=== PATIENT | male | born 1940 | race Two or more races ===

== ENCOUNTER 2019-05-03 05:56 | Inpatient (IN) | payer MEDICARE, MEDICAID ==
[2019-05-03] VITALS (14 sets, daily range): BP systolic 124–177; BP diastolic 62–97
[~2019-05-03] VITALS: Ht 170.2 cm; Wt 87.7 kg
[~2019-05-03 05:56] MED LIST: MULTIVITAMINS1 EAC2 ORAL
[2019-05-03] MEDS ORDERED: oxyCONTIN 20mg tab ORAL ONE (06:00)
[2019-05-03] MEDS ORDERED: ceFAZolin 1gm IVPB IVPB ONE ×2 (06:00)
[2019-05-03] MEDS ORDERED: celeBREX 200mg Cap **SURGERY PATIENTS ONLY ORAL ONE (06:00)
[2019-05-03] MEDS ORDERED: Bacitracin 50000 Units Vial ONE (06:38)
--- NOTE | 2019-05-03 07:06 | Pre-Procedure Note/Attestation ---
Pre-Procedure Note/Attestation Complete Prior to Procedure Planned Procedure: right Procedure Narrative: right total knee arthroplasty Indications for Procedure Pre-Operative Diagnosis: right knee arthritis Attestation I attest that I discussed the nature of the procedure; its benefits; risks and complications; and alternatives (and the risks and benefits of such alternatives ), prior to the procedure, with the patient (or the patient's legal telemarketing representative). I attest that, if there was a reasonable possibility of needing a blood transfusion, the patient (or the patient's legal telemarketing representative) was given the [facility] standardized written summary, pursuant to the Zoltan Farzad Blood Safety Act ([place] Health and Safety Code # 1645, as amended). I attest that I re-evaluated the patient just prior to the surgery and that there has been no change in the patient's H&P, except as documented below: none Marvin Addison MD May 03, 2019 07:06
[2019-05-03] MEDS ORDERED: ASPIR 8181 MG ORAL (07:15)
[2019-05-03] MEDS ORDERED: VITAMIN D250000 UNI1 ORAL (07:16)
--- NOTE | 2019-05-03 07:25 | NUR ---
IV LR WAS STARTED BY MARIBELL CANTRELL RN. NO S/S OF INFILTRATION.
[2019-05-03] MEDS ORDERED: fentaNYL 100 mcg/2 mL IV PRN (07:30)
[2019-05-03] MEDS ORDERED: DiphenhydrAMINE 50mg/ml Inj IVP PRN (07:30)
[2019-05-03] MEDS ORDERED: Acetaminophen (Non formulary) 100 ML IV ONE (07:30)
[2019-05-03] MEDS ORDERED: Tranexamic Acid 1,000 MG in NS 55 ML IVPB ONE (07:30)
[2019-05-03] MEDS ORDERED: Midazolam 2mg/2ml Inj ONE (07:32)
[2019-05-03] MEDS ORDERED: Morphine Sulfate PF 10 ML ONE (07:32)
[2019-05-03] MEDS ORDERED: HYDROmorphone 1mg/ml Carpuject SUBQ PRN (08:00)
[2019-05-03] MEDS ORDERED: Milk of Magnesia 30ml Ud ORAL PRN (08:00)
[2019-05-03] MEDS ORDERED: NS Irrig 1000ml ONE (08:30)
[2019-05-03] MEDS ORDERED: Sterile Water Irrig 1000ml IRRIG ONE (08:30)
[2019-05-03] MEDS ORDERED: LR 1000ml ONE (08:30)
--- NOTE | 2019-05-03 09:37 | Diagnostic Imaging Report ---
Indication: Cough Technique: One view of the chest Comparison: 06/07/2012 Findings: The heart is enlarged. The lungs and pleural spaces are clear. There is no significant interim change Impression: Cardiomegaly. No acute process
[2019-05-03] MEDS ORDERED: Lidocaine 1% MPF 10mg/ml 5ml ONE (09:42)
[2019-05-03] MEDS ORDERED: Propofol 200mg/20ml IV ONE (09:42)
[2019-05-03] MEDS ORDERED: Ropivacaine 5mg/ml Vial 30ml INJ ONE (09:42)
--- NOTE | 2019-05-03 11:13 | Brief Operative Note ---
Immediate Post Operative Note Operative Note Chief Complaint: rt knee pain Pre-op Diagnosis: right knee arthritis Procedure: rt total knee arthroplasty Post-op Diagnosis: same as pre-op Findings: consistent w/pre-op dx studies Surgeon: md bell Artist Blacksmith: srinivasan ibarra Anesthesiologist: RADHA bello Anesthesia: general Specimen: yes Complications: none Condition: stable Fluids: ns Drains: none Implant(s) used?: Yes - Trixie Gill May 03, 2019 11:13
--- NOTE | 2019-05-03 11:55 | Anethesia Preoperative Eval ---
Anesthesia Pre-op PMH/ROS General Date of Evaluation: May 03, 2019 Time of Evaluation: 08:00 Anesthesiologist: byron ASA Score: ASA 2 Mallampati Score Class I : Soft palate, uvula, fauces, pillars visible Class II: Soft palate, uvula, fauces visible Class III: Soft palate, base of uvula visible Class IV: Only hard plate visible Mallampati Classification: Class III Surgeon: Cyn Diagnosis: OA Surgical Procedure: TKA Anesthesia History: none Family History: no anesthesia problems Allergies: Coded Allergies: No Known Allergies (Unverified , 06/15/12) Medications: see eMAR Patient NPO?: Yes NPO Date: May 02, 2019 NPO Time: 1999 Past Medical History Cardiovascular: Reports: HTN Pulmonary: Denies: asthma, COPD, HALEY, other Gastrointestinal/Genitourinary: Reports: GERD; Denies: CRI, ESRD, other Neurologic/Psychiatric: Denies: dementia, CVA, depression/anxiety, TIA, other Endocrine: Denies: DM, hypothyroidism, steroids, other HEENT: Denies: cataract (L), cataract (R), glaucoma, UPPER MATTAPONI (L), UPPER M[place]I (R), other Hematology/Immune: Denies: anemia, DVT, bleeding disorder, other PSxH Narrative: Left TKA Anesthesia Pre-op Phys. Exam Physician Exam Last Vital Signs Date Time Temp Pulse Resp B/P (MAP) Pulse Ox O2 Delivery O2 Flow Rate FiO2 05/03/19 11:45 60 23 159/86 100 Simple Mask 6 05/03/19 11:25 98.2 Constitutional: NAD Neurologic: CN 2-12 intact Cardiovascular: RRR Respiratory: CTA Gastrointestinal: S/NT/ND Airway Exam Mallampati Classification 2 Mallampati Score: Class II MO: full Neck: thick TMD: 2fb ROM: full Dentures: no upper, no lower Anesthesia Pre-op A/P Labs Chemistry Test 05/03/19 07:20 Potassium Level 5.0 MMOL/L (3.5-5.1) Studies Pre-op Studies: EKG - SR Risk Assessment & Plan Plan: SAB/Peripheral Nerve Block Status Change Before Surgery: No Pre-Antibiotics Drug: ancef Given Within 1 Hr of Incision: Yes Time Given: 08:35 Brittney Ambrosio CRNA May 03, 2019 11:55
--- NOTE | 2019-05-03 11:58 | Immediate Post-Op Evaluation ---
Immediate Post-Op Evalulation Immediate Post-Op Evalulation Procedure: Right TKA Date of Evaluation: May 03, 2019 Time of Evaluation: 11:30 IV Fluids: 1500 Blood Products: 0 Estimated Blood Loss: 200 Urinary Output: 400 Blood Pressure Systolic: 136 Blood Pressure Diastolic: 74 Pulse Rate: 80 Respiratory Rate: 14 O2 Sat by Pulse Oximetry: 100 Temperature (Fahrenheit): 98.2 Nausea: No Vomiting: No Complications none Patient Status: awake, reacts, patent Hydration Status: adequate Drug: ancef Given Within 1 Hr of Incision: Yes Time Given: 08:35 Brittney Ambrosio CRNA May 03, 2019 11:58
[2019-05-03] MEDS ORDERED: Ketorolac 30mg Inj IV PRN (12:00)
--- NOTE | 2019-05-03 13:56 | Diagnostic Imaging Report ---
Indications: Postoperative Technique: Two views of the right knee Comparison: None Findings: Two postoperative views of the right knee demonstrate total knee arthroplasty, good anatomic alignment of the prosthesis. . There is postsurgical soft tissue air. Overlying skin fox. Impression: Postoperative right knee, no unusual features.
--- NOTE | 2019-05-03 14:00 | NUR ---
NURSE NOTES: Received s/p knee surgery, brace on , bandage clean and intact. Kyrgyz speaker has sensation to his right foot, kerwin hose, on. Per report of PT pt will be placed on CPM machine , pain medication will be given prior. Breathing room air. Ice chips given, informed that his diet will advance as tolerated. Provided with ice chips , and small amount of juice denies nausea. Current plan will be followed
--- NOTE | 2019-05-03 14:35 | NUR ---
P.T Note: P.T evaluation completed and tx initiated POD #0 per TKR protocol with granddaughter present. Pt is alert , O x 4 and cooperative. Pt reports c/o R knee pain 8/10 with movement initiation however agreeable to participate in therapy. Pt currently require MOD A X 1 , verbal cues and extended time to initiate and complete supine to/from sitting and sitting to/from standing transitions. Pt was only able to take 3-4 tiny steps using the FWW and not able to tolerate farther distance due to increased R knee pain especially upon WB. RN administered pain medication during tx session. Vitals : 172/102 mmhg HR: 87 bpm , 95%-97% pre therapy session and 168/100 mmhg, HR: 94 BPM, O2 sat: 9%-95% post P.T session. CPM was set up to 0-60 deg and currently tolerating well. CPM endorsed to RN at the end of P.T shift. Pt will benefit from skilled P.T services to improve ROM, strength and activity tolerance to increase mobility independence and safety. Recommend FWW, bedside commode and SNF or ARU for short term rehab VS home with P.T at [place]. thank you for this referral.
[2019-05-03] MEDS: D5 1/2NS w/KCl 20mEq 1,000 ML IV SCH (14:36)
[2019-05-03] MEDS: Docusate 100mg cap ORAL SCH ×2 (14:37→19:33)
--- NOTE | 2019-05-03 16:15 | Operative Note - Dictated ---
DATE OF OPERATION: 05/03/2019 PREOPERATIVE DIAGNOSIS: Right knee end-stage arthritis. POSTOPERATIVE DIAGNOSIS: Right knee end-stage arthritis. PROCEDURE: Right total knee arthroplasty using [employer] Triathlon System, size 3 femur, size 3 tibia, size 29 mm all-poly patella and a 16 mm ultra cross-linked X3 polyethylene. SURGEON: Marvin Addison M.D. EMERGENCY DEPARTMENT PHYSICIAN: Trixie Fisher PA-C. ANESTHESIOLOGIST: Brittney Ambrosio CRNA. ANESTHESIA: Spinal anesthesia combined with adductor block. ESTIMATED BLOOD LOSS: Less than 50 mL. TOURNIQUET TIME: 70 minutes. COMPLICATIONS: None. BRIEF HISTORY: The patient is a pleasant 79-year-old gentleman who has had ongoing right knee pain. He was treated nonoperatively and he failed. After full discussion of risks and benefits of the surgery and complications associated with it including infection, bleeding, neurovascular complication, possibility of stiffness, possibility of instability, possibility of continued pain, possibility of DVT, PE, and wound infection requiring resection arthroplasty and other complications that may arise down the line, he opted for surgical treatment as described above. OPERATIVE PROCEDURE: The patient was brought to the operating room table and was placed supine. All pressure points well padded. Spinal anesthesia was induced and adductor block was performed. The right knee was prepped and draped in usual sterile fashion and the right knee was exsanguinated. Tourniquet was inflated to 275 mmHg. A standard anterior approach to the knee was undertaken. The incision was taken through the subcutaneous tissue. Medial parapatellar arthrotomy was performed and the deep fibers of the MCL were released. The fat pad was resected. The knee was bent and the intramedullary and ACL and PCL were removed. Intramedullary access into the femur was obtained and intramedullary guide was placed in and a distal femoral cut was performed in 5 degrees of valgus. At this point, measurements were made and size 3 appeared to be the right size. Size 3 cutting block was placed in 3 degrees of external rotation and anterior, posterior, and chamfer cuts were performed. The trial prostheses was applied and lateralized slightly and the PEG holes were drilled. At this point, care was given to the tibia. Extramedullary tibial guide was applied. The anterior crest of the tibia was used as a guide to recreate anatomical axis. The medial side was worn significantly and it was felt that 2 mm of additional cut off the medial side would be the correct cut. This was performed using the guide in neutral anatomical alignment with recreating the patient's posterior slope. Once this was completed, extension gap was checked and appeared to be perfect at 16 mm. Therefore at this point, the sizing of the tibia was performed and size 3 appeared to be the right size. This was placed in about 3 degrees of external rotation and the central hole was drilled and punched. Once this was completed, the femoral component and tibial components were applied and the sequential poly was placed at the 11 mm, 13 mm, 16 mm. 16 mm gave excellent stability at 0, 30 degrees, 45 degrees, 90 degrees of flexion and gave full flexion and extension. At this point, care was given to the patella. The patella was everted. It measured 24 mm. A standard freehand cut of the patella was performed and 12 mm was remaining. Measurements were made and 29 mm patella appeared to be the right size. The PEG holes were drilled. The patellar trial was applied and femoral and tibial components were applied and 16 mm poly was applied and the patellofemoral tracking was checked. There was excellent patellofemoral tracking and excellent range of motion and stability as described. At this point, all trial components were removed. The cement was mixed. The central femoral hole was plugged using the bone plug. The cement was mixed. After thoroughly irrigating the knee and drying the knee, the tibial component, femoral component, and patella components were all cemented and all excess cement was removed. Compression was applied until cement had hardened and subsequently a 16 mm poly was then locked in. Range of motion, stability, and patellofemoral tracking was checked and again it was excellent as described previously. All wounds were thoroughly irrigated using copious amount of fluid. The tourniquet was deflated and all small bleeders were coagulated. The extensor mechanism was closed using #1 Vicryl suture. Subcutaneous tissue was closed using 2-0 Vicryl suture. Skin was closed using 3-0 Monocryl suture. Dermabond was applied and sterile dressing was applied. The patient was taken to recovery room in stable condition. All lap counts and instrument counts were correct. Marvin Heber Addison DR: KUMAR JOB#: [id number] CC:
[2019-05-03] MEDS: HYDROcodone/Acetamin 7.5/325 tab ORAL PRN (17:22)
[2019-05-03] MEDS: ceFAZolin sod 1 GM in D5W 55 ML IV SCH (17:22)
--- NOTE | 2019-05-03 19:20 | NUR ---
NURSE NOTES: Received pt resting in bed. AAO x 4, on NC 2L. CPM machine applied and dressing on the R leg intact/dry. Pt has sensation on both leg. Pt hasn't had urine out since knee surgery. IV intact and running fluid. No resp. distress noted. Bed locked, lowest position, side rails up, call light within reach. Will continue to monitor.
--- NOTE | 2019-05-03 19:48 | NUR ---
NURSE NOTES: Pt currently sleeping. Endorsed to oncoming nurse to remove cpm machine, and monitor pt for urine output. Call light is in reach. family member is at bedside. Refused dinner, stated he will eat when he wakes up. Has sensation to both feet, required encouragement to take pain medication " Pain is a part of healing" Error made for [place] stated pain was very minimal entered as 6 in error. 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 Mexican speaker cooperative kind male. Call light in reach. Tolerated fluids
--- NOTE | 2019-05-03 21:30 | NUR ---
NURSE NOTES: CPM removed and applied towel roll under the R heel.
[2019-05-03] MEDS: oxyCONTIN 10mg tab ORAL SCH (21:46)
--- NOTE | 2019-05-03 22:20 | NUR ---
NURSE NOTES: Performed bladder scan and result is 462cc. Called Dr. Calvin and ordered Flomax 0.4mg, po, daily and Gilbert. Order noted and carried out.
[2019-05-04] VITALS (7 sets, daily range): BP systolic 133–188; BP diastolic 53–102
[2019-05-04] MEDS: ceFAZolin sod 1 GM in D5W 55 ML IV SCH (03:32)
[2019-05-04] MEDS: D5 1/2NS w/KCl 20mEq 1,000 ML IV SCH ×2 (03:32→16:40)
[2019-05-04 07:06] LABS: BASOPHILS % (AUTO) 0.6 % (0.0-2.0); EOSINOPHILS % (AUTO) 1.5 % (0.0-3.0); HEMATOCRIT 43.2 % (42.0-52.0); HEMOGLOBIN 14.1 G/DL (14.2-18.0); MEAN CORPUSCULAR VOLUME 92 FL (80-99); MONOCYTES % (AUTO) 9.6 % (1.0-10.0); NEUTROPHILS % (AUTO) 76.4 % (45.0-75.0); PLATELET COUNT 153 K/UL (150-450); RED CELL DISTRIBUTION WIDTH 12.4 % (11.6-14.8); WHITE BLOOD COUNT 7.7 K/UL (4.8-10.8)
--- NOTE | 2019-05-04 07:17 | Orthopedic Progress Note ---
Orthopedic - Progress Note Subjective Symptoms: c/o post-op knee pain Additional Comments slow with PT Objective Last 24 Hour Vital Signs Date Time Temp Pulse Resp B/P (MAP) Pulse Ox O2 Delivery O2 Flow Rate FiO2 05/04/19 04:00 97.9 83 20 147/74 (98) 97 05/04/19 00:00 96.8 83 18 149/76 (100) 97 05/03/19 21:00 Nasal Cannula 2.0 05/03/19 20:00 97.8 80 18 148/86 (106) 98 05/03/19 16:18 97.6 80 20 132/78 (96) 96 05/03/19 13:00 98.2 69 19 159/93 100 Nasal Cannula 3 05/03/19 12:45 67 18 158/97 98 Nasal Cannula 3 05/03/19 12:36 98.2 05/03/19 12:36 98.2 05/03/19 12:35 67 16 165/90 99 Nasal Cannula 3 05/03/19 12:25 69 17 169/93 99 Nasal Cannula 3 05/03/19 12:15 66 18 175/95 99 Nasal Cannula 3 05/03/19 12:05 61 17 177/89 100 Nasal Cannula 3 05/03/19 11:58 80 14 100 05/03/19 11:55 63 16 167/91 100 Nasal Cannula 3 05/03/19 11:45 60 23 159/86 100 Simple Mask 6 05/03/19 11:35 60 23 157/79 100 Simple Mask 6 05/03/19 11:30 61 23 149/62 100 Simple Mask 6 05/03/19 11:25 98.2 80 14 136/74 100 Simple Mask 6 05/03/19 07:44 97.8 69 20 124/88 (100) 97 05/03/19 07:37 Room Air Intake and Output 05/03/19 05/04/19 19:00 07:00 Intake Total 1900 ml Output Total 600 ml 1100 ml Balance 1300 ml -1100 ml Intake IV Total 1900 ml Output Urine Total 400 ml 1100 ml Estimated Blood Loss 200 ml Laboratory Tests Test 05/03/19 07:20 05/04/19 05:48 Potassium Level 5.0 MMOL/L (3.5-5.1) White Blood Count 7.7 K/UL (4.8-10.8) Red Blood Count 4.70 M/UL (4.70-6.10) Hemoglobin 14.1 G/DL (14.2-18.0) L Hematocrit 43.2 % (42.0-52.0) Mean Corpuscular Volume 92 FL (80-99) Mean Corpuscular Hemoglobin 30.0 PG (27.0-31.0) Mean Corpuscular Hemoglobin Concent 32.6 G/DL (32.0-36.0) Red Cell Distribution Width 12.4 % (11.6-14.8) Platelet Count 153 K/UL (150-450) Mean Platelet Volume 7.8 FL (6.5-10.1) Neutrophils (%) (Auto) 76.4 % (45.0-75.0) H Lymphocytes (%) (Auto) 12.0 % (20.0-45.0) L Monocytes (%) (Auto) 9.6 % (1.0-10.0) Eosinophils (%) (Auto) 1.5 % (0.0-3.0) Basophils (%) (Auto) 0.6 % (0.0-2.0) Wound: clean, dry Drains: none Neuro Status: normal Vascular Status: normal Plan Plan: PT, pain management, discharge plan Additional Comments Plan on going to rehab. Marvin Addison MD May 04, 2019 07:17
--- NOTE | 2019-05-04 07:45 | NUR ---
NURSE NOTES: Received report from Blanca JOHNSON. Patient is awake and oriented, no acute distress noted, reporting pain rated 5/10 in right knee. Surgical site dressing clean, dry, intact, SCD on left leg, NIKKI HOSE on right leg. IVF running per order. Patient's and granddaughter at bedside updated on plan of care. Fall precautions maintained. Gilbert catheter to gravity drainage. Side rails upx3, bed low and locked, call light within reach.
--- NOTE | 2019-05-04 08:09 | NUR ---
HAND-OFF: Report given to ELIZABETH Tanner.
--- NOTE | 2019-05-04 08:39 | 48 Hour Post Anesthesia Eval ---
Post Anesthesia Evaluation Procedure: Right TKA Date of Evaluation: May 04, 2019 Time of Evaluation: 06:17 Blood Pressure Systolic: 147 0: 74 Pulse Rate: 83 Respiratory Rate: 20 Temperature (Fahrenheit): 97.9 O2 Sat by Pulse Oximetry: 97 Airway: patent Nausea: No Vomiting: No Pain Intensity: 3 Hydration Status: adequate Cardiopulmonary Status: Stable Mental Status/LOC: patient returned to baseline Follow-up Care/Observations: 0 Post-Anesthesia Complications: 0 Follow-up care needed: N/A Jose Sparks MD May 04, 2019 08:39
[2019-05-04] MEDS: Docusate 100mg cap ORAL SCH ×3 (09:24→17:45)
[2019-05-04] MEDS: Tamsulosin 0.4mg cap ORAL SCH (09:25)
[2019-05-04] MEDS: celeBREX 200mg Cap **SURGERY PATIENTS ONLY ORAL SCH (09:25)
[2019-05-04] MEDS: oxyCONTIN 10mg tab ORAL SCH ×2 (09:26→20:36)
[2019-05-04] MEDS: HYDROcodone/Acetamin 7.5/325 tab ORAL PRN ×2 (10:43→23:23)
--- NOTE | 2019-05-04 12:27 | NUR ---
NURSE NOTES: Called office of Dr. Calvin to report patient's blood pressure of 181/99, spoke with escrow secretary Julieth. Per MD Julieth will be paged. Awaiting callback. Patient denies headache or blurry vision, patient is just reporting pain. No pain medication due at this time.
--- NOTE | 2019-05-04 12:34 | NUR ---
NURSE NOTES: Received call back from Dr. Calvin. Order received for PRN pain medication and PRN blood pressure medication. Orders read back and entered.
[2019-05-04] MEDS ORDERED: traMADol 50mg tab ORAL PRN (12:45)
--- NOTE | 2019-05-04 14:16 | NUR ---
CASE MANAGEMENT: INITIAL REVIEW 79YR OLD MALE HERE FOR ELECTIVE SURGERY SI: RIGHT KNEE ARTHRITIS 97.8 69 20 124/88 97% ON RA IS: RIGHT KNEE ARTHROPLASTY 05/03/19 : IN SURGERY NOW DCP: [facility] WHEN MEDICALLY CLEARED CASE MANAGEMENT: REVIEW 05/04/19 SI: POD#1 RIGHT KNEE ARTHROPLASTY 98.0 87 18 150/97 94% ON RA IS: IV DEXTROSE @75ML/HR IV CEFAZOLIN X2 BAGS FEOSOL PO TID CATAPRES PO Q8/PRN PROTONIX PO QD CELEBREX PO QD 3E MED SURG UNIT DCP: TO REHAB ONCE MEDICALLY CLEAR PLAN: PT EVAL AND TREAT
--- NOTE | 2019-05-04 19:45 | NUR ---
HAND-OFF: Report given to Sofi JOHNSON.
[2019-05-05] VITALS: BP 156/82
--- NOTE | 2019-05-05 03:32 | History and Physical Report ---
DATE OF ADMISSION: 05/03/2019 INTERNAL MEDICINE CONSULTATION HISTORY OF PRESENT ILLNESS: The patient is a very pleasant 79-year-old gentleman with a history of arthritis, who underwent right knee replacement on yesterday with Dr. Addison. Postoperatively, the patient did fine, but had difficulty urinating and had retention and a Gilbert was placed. He denies any headaches. No sore throat. No chest pain. No shortness of breath. No abdominal pain. He does have knee pain and is getting pain medications for it. Due to the pain, his BP has been elevated as well. PAST MEDICAL HISTORY: The patient has no history of diabetes or hyperlipidemia. He does have a history of increased blood pressure in the past. He has had a history of cataract surgery. He has had a history of left knee surgery in 2011 and left shoulder surgery with tendons and ligaments. He has a history of osteoarthritis gets worse with weather changes. 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 He has received radiation therapy. FAMILY HISTORY: Brother had cirrhosis from alcoholism. Mother had history of high blood pressure. Father had depression. ALLERGIES: None known. MEDICATIONS: Please see his reconciled medication list. REVIEW OF SYSTEMS: Twelve point review of systems reviewed, negative except for above. PHYSICAL EXAMINATION: GENERAL: He is well developed and well nourished, currently in no apparent distress. VITAL SIGNS: Revealed a blood pressure initially 181/99, respirations 18, pulse 89, and temperature 98.2. HEENT: Head is normocephalic and atraumatic. Pupils are equal and reactive to light. Extraocular muscles are intact. Eyes are anicteric. NECK: Supple. No JVP. No bruits. LUNGS: Clear. HEART: Regular rate and rhythm. ABDOMEN: Soft. Positive bowel sounds. EXTREMITIES: No clubbing, cyanosis, or edema. His right knee is wrapped, neurovascular intact. PSYCHIATRIC: Normal mood and affect. LABORATORY DATA: Revealed white count 7.7, hemoglobin 14.1, hematocrit 43.2, and platelet count 153,000. His chest x-ray reveals cardiomegaly, no acute disease. His knee film reveals postoperative right knee. No unusual features. ASSESSMENT AND PLAN: The patient is a pleasant 79-year-old gentleman who underwent a knee replacement secondary to osteoarthritis. He does have a history of hypertension from before. Due to the increased pain, his BP has been up. I placed him on clonidine 0.1 mg three times a day and p.r.n. We will place him on Norvasc 5 mg daily and monitor. We will check labs in the a.m. The patient should be on DVT and ulcer prophylaxis. Evan Calvin M.D. DR: JUDY JOB#: [id number] CC:
[2019-05-05] MEDS: D5 1/2NS w/KCl 20mEq 1,000 ML IV SCH ×3 (03:46→21:35)
[2019-05-05] MEDS: HYDROcodone/Acetamin 7.5/325 tab ORAL PRN ×2 (03:46→17:50)
[2019-05-05 04:00] VITALS: BP 128/83
--- NOTE | 2019-05-05 06:24 | NUR ---
NURSE NOTES: POD # 2 dressing change done to left knee per MD order. Applied 4x4 gauze and tegaderm, clean, dry and intact.
[2019-05-05 06:34] LABS: BASOPHILS % (AUTO) 0.4 % (0.0-2.0); EOSINOPHILS % (AUTO) 2.4 % (0.0-3.0); HEMATOCRIT 38.6 % (42.0-52.0); HEMOGLOBIN 12.6 G/DL (14.2-18.0); LYMPHOCYTES % (AUTO) 9.9 % (20.0-45.0); MEAN CORPUSCULAR VOLUME 92 FL (80-99); NEUTROPHILS % (AUTO) 77.3 % (45.0-75.0); PLATELET COUNT 129 K/UL (150-450); RED CELL DISTRIBUTION WIDTH 12.1 % (11.6-14.8); WHITE BLOOD COUNT 9.4 K/UL (4.8-10.8)
[2019-05-05 06:59] LABS: ALANINE AMINOTRANSFERASE 18 U/L (12-78); ALBUMIN 2.6 G/DL (3.4-5.0); ALBUMIN/GLOBULIN RATIO 0.7 (1.0-2.7); ALKALINE PHOSPHATASE 114 U/L (46-116); ANION GAP 8 mmol/L (5-15); ASPARTATE AMINO TRANSFERASE 23 U/L (15-37); BILIRUBIN,TOTAL 0.9 MG/DL (0.2-1.0); BLOOD UREA NITROGEN 18 mg/dL (7-18); CARBON DIOXIDE 23 MMOL/L (21-32); CHLORIDE 107 MMOL/L (98-107); CREATININE 1.4 MG/DL (0.55-1.30); SODIUM 138 MMOL/L (136-145)
--- NOTE | 2019-05-05 07:25 | NUR ---
HAND-OFF: Report given to Rhona.
--- NOTE | 2019-05-05 07:45 | NUR ---
NURSE NOTES: Received report from Sofi JOHNSON. Patient is awake and oriented, no acute distress noted, reporting pain rated 7/10 in right knee, will medicate per order, patient has scheduled AM pain medication. Right knee dressing clean, dry, intact. IVF running per order through left wrist IV, IV intact, patent. Gilbert catheter to gravity drainage. Patient updated on plan of care for the day. Fall precautions maintained, side rails upx3, bed low and locked, call light within reach.
[2019-05-05 08:00] VITALS: BP 144/89
--- NOTE | 2019-05-05 08:01 | Orthopedic Progress Note ---
Orthopedic - Progress Note Subjective Symptoms: improved - doing well with PT. pain controlled. Had some urinary retention and ordaz placed Objective Laboratory Tests Test 05/05/19 05:30 White Blood Count 9.4 K/UL (4.8-10.8) Red Blood Count 4.20 M/UL (4.70-6.10) L Hemoglobin 12.6 G/DL (14.2-18.0) L Hematocrit 38.6 % (42.0-52.0) L Mean Corpuscular Volume 92 FL (80-99) Mean Corpuscular Hemoglobin 30.1 PG (27.0-31.0) Mean Corpuscular Hemoglobin Concent 32.7 G/DL (32.0-36.0) Red Cell Distribution Width 12.1 % (11.6-14.8) Platelet Count 129 K/UL (150-450) L Mean Platelet Volume 7.4 FL (6.5-10.1) Neutrophils (%) (Auto) 77.3 % (45.0-75.0) H Lymphocytes (%) (Auto) 9.9 % (20.0-45.0) L Monocytes (%) (Auto) 10.0 % (1.0-10.0) Eosinophils (%) (Auto) 2.4 % (0.0-3.0) Basophils (%) (Auto) 0.4 % (0.0-2.0) Sodium Level 138 MMOL/L (136-145) Potassium Level 4.0 MMOL/L (3.5-5.1) Chloride Level 107 MMOL/L (98-107) Carbon Dioxide Level 23 MMOL/L (21-32) Anion Gap 8 mmol/L (5-15) Blood Urea Nitrogen 18 mg/dL (7-18) Creatinine 1.4 MG/DL (0.55-1.30) H Estimat Glomerular Filtration Rate mL/min (>60) Glucose Level 116 MG/DL (74-106) H Calcium Level 8.0 MG/DL (8.5-10.1) L Total Bilirubin 0.9 MG/DL (0.2-1.0) Aspartate Amino Transf (AST/SGOT) 23 U/L (15-37) Alanine Aminotransferase (ALT/SGPT) 18 U/L (12-78) Alkaline Phosphatase 114 U/L (46-116) Total Protein 6.3 G/DL (6.4-8.2) L Albumin 2.6 G/DL (3.4-5.0) L Globulin 3.7 g/dL Albumin/Globulin Ratio 0.7 (1.0-2.7) L Last 24 Hour Vital Signs Date Time Temp Pulse Resp B/P (MAP) Pulse Ox O2 Delivery O2 Flow Rate FiO2 05/05/19 04:00 98.2 95 20 128/83 (98) 95 05/05/19 00:00 98.2 98 20 156/82 (106) 96 05/04/19 22:07 92 156/81 05/04/19 21:00 Room Air 05/04/19 20:00 97.9 96 18 141/53 (82) 97 05/04/19 16:00 97.9 92 16 133/89 (104) 96 05/04/19 13:13 188/102 05/04/19 13:06 97 188/102 (130) 05/04/19 12:00 98.2 89 18 181/99 (126) 96 05/04/19 09:00 Room Air 05/04/19 08:39 83 20 97 Intake and Output 05/04/19 05/05/19 19:00 07:00 Intake Total 1125 ml Output Total 900 ml 750 ml Balance 225 ml -750 ml Intake Oral 300 ml IV Total 825 ml Output Urine Total 900 ml 750 ml Laboratory Tests Test 05/05/19 05:30 White Blood Count 9.4 K/UL (4.8-10.8) Red Blood Count 4.20 M/UL (4.70-6.10) L Hemoglobin 12.6 G/DL (14.2-18.0) L Hematocrit 38.6 % (42.0-52.0) L Mean Corpuscular Volume 92 FL (80-99) Mean Corpuscular Hemoglobin 30.1 PG (27.0-31.0) Mean Corpuscular Hemoglobin Concent 32.7 G/DL (32.0-36.0) Red Cell Distribution Width 12.1 % (11.6-14.8) Platelet Count 129 K/UL (150-450) L Mean Platelet Volume 7.4 FL (6.5-10.1) Neutrophils (%) (Auto) 77.3 % (45.0-75.0) H Lymphocytes (%) (Auto) 9.9 % (20.0-45.0) L Monocytes (%) (Auto) 10.0 % (1.0-10.0) Eosinophils (%) (Auto) 2.4 % (0.0-3.0) Basophils (%) (Auto) 0.4 % (0.0-2.0) Sodium Level 138 MMOL/L (136-145) Potassium Level 4.0 MMOL/L (3.5-5.1) Chloride Level 107 MMOL/L (98-107) Carbon Dioxide Level 23 MMOL/L (21-32) Anion Gap 8 mmol/L (5-15) Blood Urea Nitrogen 18 mg/dL (7-18) Creatinine 1.4 MG/DL (0.55-1.30) H Estimat Glomerular Filtration Rate mL/min (>60) Glucose Level 116 MG/DL (74-106) H Calcium Level 8.0 MG/DL (8.5-10.1) L Total Bilirubin 0.9 MG/DL (0.2-1.0) Aspartate Amino Transf (AST/SGOT) 23 U/L (15-37) Alanine Aminotransferase (ALT/SGPT) 18 U/L (12-78) Alkaline Phosphatase 114 U/L (46-116) Total Protein 6.3 G/DL (6.4-8.2) L Albumin 2.6 G/DL (3.4-5.0) L Globulin 3.7 g/dL Albumin/Globulin Ratio 0.7 (1.0-2.7) L Wound: clean, dry, intact Drains: none Neuro Status: normal Vascular Status: normal Assessment Post-op Diagnosis POD 2 Procedure Performed rt total knee arthroplasty Plan Plan: discharge plan - to [facility]. , other - d/c ordaz and ensure voiding prior to d/c to rehab Trixie Fisher May 05, 2019 08:01
--- NOTE | 2019-05-05 08:03 | Discharge Summary ---
Discharge Summary Hospital Course Date of Admission May 03, 2019 at 05:56 Date of Discharge 05/05/19 Admitting Diagnosis rt knee arthritis Reason for Hospitalization: s/p Rt TKA HPI Ry Cho is a 79 year old male who was admitted on May 03, 2019 at 05:56 for Right Total Knee Artroplasty Consultations MD Nikunj Procedures rt TKA Hospital Course benign. had some urinary retention POD 1 and ordaz placed. Discharge Condition Upon Discharge: improving, stable Discharge Disposition Patient was discharged to [facility] [place] Trixie Fisher May 05, 2019 08:03
[2019-05-05] MEDS: celeBREX 200mg Cap **SURGERY PATIENTS ONLY ORAL SCH (08:38)
[2019-05-05] MEDS: Docusate 100mg cap ORAL SCH ×3 (08:38→17:50)
[2019-05-05] MEDS: Tamsulosin 0.4mg cap ORAL SCH (08:38)
[2019-05-05] MEDS: oxyCONTIN 10mg tab ORAL SCH ×2 (08:39→20:43)
--- NOTE | 2019-05-05 08:47 | NUR ---
NURSE NOTES: Gilbert catheter removed per order. Patient tolerated well. Patient provided with urinal, educated to inform RN when he voids.
[2019-05-05] MEDS ORDERED: MOM30 ML ORAL (08:59)
[2019-05-05] MEDS ORDERED: PANTOPRAZOLE SO40 MG ORAL (08:59)
[2019-05-05] MEDS ORDERED: COLACE100 MG ORAL (08:59)
[2019-05-05] MEDS ORDERED: FEOSOL325 MG ORAL (08:59)
[2019-05-05] MEDS ORDERED: ASPIRIN325 MG ORAL (08:59)
[2019-05-05] MEDS ORDERED: NORVASC5 MG ORAL (08:59)
[2019-05-05] MEDS ORDERED: CLONIDINE HCL0.1 MG ORAL (08:59)
[2019-05-05] MEDS ORDERED: FLOMAX0.4 MG ORAL (08:59)
--- NOTE | 2019-05-05 09:55 | NUR ---
*-* CASE MANAGEMENT NOTES *-* EMAIL RECEIVED FROM GRAYSON JOHNSON WITH FORM TO BE UTILIZED FOR DISCHARGE PLANNING NEEDS. Addendum: 05/05/19 at 0915 by CHRISTIAN GOODE CM FORM GIVEN TO FASHION COORDINATOR
--- NOTE | 2019-05-05 10:19 | NUR ---
DISCHARGE PLANNING: BARRIERS POSSIBLE BED IN AM AT [facility] T: [phone] WILL F/U IN AM
--- NOTE | 2019-05-05 11:35 | NUR ---
DISCHARGE PLANNING: [facility] T: [phone] WAITING FOR RESPONSE Addendum: 05/05/19 at 1355 by ZAIRA BELL LVN POSSIBLE BED IN AM WILL F/U IN AM
[2019-05-05 12:00] VITALS: BP 150/86
--- NOTE | 2019-05-05 14:01 | NUR ---
NURSE NOTES: Patient voided 325mL of clear, yellow urine without difficulty.
[2019-05-05 16:00] VITALS: BP 149/86
--- NOTE | 2019-05-05 19:31 | NUR ---
HAND-OFF: Report given to Sofi JOHNSON.
[2019-05-05 20:00] VITALS: BP 146/81
--- NOTE | 2019-05-05 20:56 | General Progress Note ---
Assessment/Plan Assessment/Plan: sp knee replacement htn osteoarthritis pain control PT ambulate ruth regimen stool softners on novasc dvt and ucler prohylaxis dc plans to cri Subjective Allergies: Coded Allergies: No Known Allergies (Unverified , 06/15/12) Subjective pain controlled no chest pain or sob no bm Objective Last 24 Hour Vital Signs Date Time Temp Pulse Resp B/P (MAP) Pulse Ox O2 Delivery O2 Flow Rate FiO2 05/05/19 16:00 98.0 106 16 149/86 (107) 96 05/05/19 12:00 98.1 104 16 150/86 (107) 94 05/05/19 09:00 Room Air 05/05/19 08:38 95 144/89 05/05/19 08:00 98.7 95 16 144/89 (107) 94 05/05/19 04:00 98.2 95 20 128/83 (98) 95 05/05/19 00:00 98.2 98 20 156/82 (106) 96 05/04/19 22:07 92 156/81 05/04/19 21:00 Room Air Intake and Output 05/04/19 05/05/19 18:59 06:59 Intake Total 1200 ml Output Total 900 ml 750 ml Balance 300 ml -750 ml Intake Oral 300 ml IV Total 900 ml Output Urine Total 900 ml 750 ml Laboratory Tests 05/05/19 05:30: White Blood Count 9.4, Red Blood Count 4.20L, Hemoglobin 12.6L, Hematocrit 38.6L , Mean Corpuscular Volume 92, Mean Corpuscular Hemoglobin 30.1, Mean Corpuscular Hemoglobin Concent 32.7, Red Cell Distribution Width 12.1, Platelet Count 129L, Mean Platelet Volume 7.4, Neutrophils (%) (Auto) 77.3H, Lymphocytes (%) (Auto) 9.9L, Monocytes (%) (Auto) 10.0, Eosinophils (%) (Auto) 2.4, Basophils (%) (Auto) 0.4, Sodium Level 138, Potassium Level 4.0, Chloride Level 107, Carbon Dioxide Level 23, Anion Gap 8, Blood Urea Nitrogen 18, Creatinine 1.4H, Estimat Glomerular Filtration Rate , Glucose Level 116H, Calcium Level 8.0L, Total Bilirubin 0.9, Aspartate Amino Transf (AST/SGOT) 23, Alanine Aminotransferase (ALT/SGPT) 18, Alkaline Phosphatase 114, Total Protein 6.3L, Albumin 2.6L, Globulin 3.7, Albumin/Globulin Ratio 0.7L Height (Feet): 5 Height (Inches): 7.00 Weight (Pounds): 193 General Appearance: WD/WN, no apparent distress Neck: supple Cardiovascular: normal rate Respiratory/Chest: lungs clear Abdomen: soft Objective le wrapped neurvascular intact Evan Calvin MD May 05, 2019 20:56
[2019-05-06 00:23] VITALS: BP 136/86
[2019-05-06 04:30] VITALS: BP 136/83
[2019-05-06] MEDS: HYDROcodone/Acetamin 7.5/325 tab ORAL PRN (04:58)
--- NOTE | 2019-05-06 05:33 | NUR ---
NURSE NOTE: 05/05/191999 Pt A/Ox4 with stable VS. Orders reviewed and physical assessment completed. Right leg dressing is clean, dry, and intact with kerwin hose on. The right foot is resting on a rolled towel, pt refused to have SCD on left leg. Will continue to monitor
[2019-05-06 06:30] LABS: BASOPHILS % (AUTO) 0.3 % (0.0-2.0); EOSINOPHILS % (AUTO) 2.1 % (0.0-3.0); HEMOGLOBIN 12.7 G/DL (14.2-18.0); LYMPHOCYTES % (AUTO) 9.5 % (20.0-45.0); MEAN CORPUSCULAR VOLUME 91 FL (80-99); MONOCYTES % (AUTO) 7.5 % (1.0-10.0); NEUTROPHILS % (AUTO) 80.6 % (45.0-75.0); PLATELET COUNT 141 K/UL (150-450); RED BLOOD COUNT 4.15 M/UL (4.70-6.10); RED CELL DISTRIBUTION WIDTH 12.1 % (11.6-14.8)
--- NOTE | 2019-05-06 07:07 | NUR ---
HAND-OFF: Report given to Bonnie Loo.
--- NOTE | 2019-05-06 07:51 | NUR ---
NURSE NOTES: Patient awake and alert and oriented.Respirations unlabored.IV fluids infusing as ordered.right knee dressing intact.Pedal pulse strong.No complaints at this time.Patient eating breakfast.Bed alarm is on,call light within reach.
--- NOTE | 2019-05-06 08:24 | NUR ---
DISCHARGE PLANNING: [facility] T: [phone] WAITING FOR DISCHARGE ORDER
--- NOTE | 2019-05-06 08:26 | Orthopedic Progress Note ---
Orthopedic - Progress Note Subjective Symptoms: improved, other - no bed at [facility] or [facility] yesterday. d/c held due to bed availability Objective Laboratory Tests Test 05/06/19 05:25 White Blood Count 9.0 K/UL (4.8-10.8) Red Blood Count 4.15 M/UL (4.70-6.10) L Hemoglobin 12.7 G/DL (14.2-18.0) L Hematocrit 38.0 % (42.0-52.0) L Mean Corpuscular Volume 91 FL (80-99) Mean Corpuscular Hemoglobin 30.5 PG (27.0-31.0) Mean Corpuscular Hemoglobin Concent 33.4 G/DL (32.0-36.0) Red Cell Distribution Width 12.1 % (11.6-14.8) Platelet Count 141 K/UL (150-450) L Mean Platelet Volume 8.3 FL (6.5-10.1) Neutrophils (%) (Auto) 80.6 % (45.0-75.0) H Lymphocytes (%) (Auto) 9.5 % (20.0-45.0) L Monocytes (%) (Auto) 7.5 % (1.0-10.0) Eosinophils (%) (Auto) 2.1 % (0.0-3.0) Basophils (%) (Auto) 0.3 % (0.0-2.0) Last 24 Hour Vital Signs Date Time Temp Pulse Resp B/P (MAP) Pulse Ox O2 Delivery O2 Flow Rate FiO2 05/06/19 04:30 98.1 102 18 136/83 (100) 95 05/06/19 00:23 97.9 99 18 136/86 (103) 97 05/05/19 21:00 Room Air 05/05/19 20:00 98.1 101 18 146/81 (102) 97 05/05/19 16:00 98.0 106 16 149/86 (107) 96 05/05/19 12:00 98.1 104 16 150/86 (107) 94 05/05/19 09:00 Room Air 05/05/19 08:38 95 144/89 Intake and Output 05/05/19 05/06/19 19:00 07:00 Intake Total 1425 ml Output Total 525 ml 900 ml Balance 900 ml -900 ml Intake Oral 600 ml IV Total 825 ml Output Urine Total 525 ml 900 ml # Voids 1 # Bowel Movements 1 Laboratory Tests Test 05/06/19 05:25 White Blood Count 9.0 K/UL (4.8-10.8) Red Blood Count 4.15 M/UL (4.70-6.10) L Hemoglobin 12.7 G/DL (14.2-18.0) L Hematocrit 38.0 % (42.0-52.0) L Mean Corpuscular Volume 91 FL (80-99) Mean Corpuscular Hemoglobin 30.5 PG (27.0-31.0) Mean Corpuscular Hemoglobin Concent 33.4 G/DL (32.0-36.0) Red Cell Distribution Width 12.1 % (11.6-14.8) Platelet Count 141 K/UL (150-450) L Mean Platelet Volume 8.3 FL (6.5-10.1) Neutrophils (%) (Auto) 80.6 % (45.0-75.0) H Lymphocytes (%) (Auto) 9.5 % (20.0-45.0) L Monocytes (%) (Auto) 7.5 % (1.0-10.0) Eosinophils (%) (Auto) 2.1 % (0.0-3.0) Basophils (%) (Auto) 0.3 % (0.0-2.0) Wound: clean, dry, intact Drains: none Neuro Status: normal Vascular Status: normal Assessment Post-op Diagnosis POD 3 Procedure Performed rt total knee arthroplasty Plan Plan: discharge plan - to [facility] or [facility] today-whomever has bed. Trixie Fisher May 06, 2019 08:26
[2019-05-06 08:50] VITALS: BP 124/72
[2019-05-06] MEDS: celeBREX 200mg Cap **SURGERY PATIENTS ONLY ORAL SCH (08:59)
[2019-05-06] MEDS: Tamsulosin 0.4mg cap ORAL SCH (08:59)
[2019-05-06] MEDS: Docusate 100mg cap ORAL SCH (08:59)
[2019-05-06] MEDS: oxyCONTIN 10mg tab ORAL SCH (09:00)
--- NOTE | 2019-05-06 09:57 | NUR ---
DISCHARGE PLANNED: PATIENT HAS BEEN ACCEPT[facility] TO [facility] T: [phone] FOR NURSE TO NURSE REPORT ROOM# [address] [facility] PICKUP TIME @12 NOON
[2019-05-06 12:00] VITALS: BP 150/82
--- NOTE | 2019-05-06 12:21 | NUR ---
NURSE NOTES: Report given to Agnes JOHNSON at [facility].
--- NOTE | 2019-05-06 13:20 | NUR ---
NURSE NOTES: [facility] [place]discharge instructions given .patient has personal belongings .patient has cell phone.IV removed and ID hospital band removed.
--- NOTE | 2019-05-07 00:36 | General Progress Note ---
Assessment/Plan Assessment/Plan: sp knee replacement htn osteoarthritis pain control PT ambulate ruth regimen stool softners on novasc dvt and ucler prohylaxis dc plans to cri when bed avialble Subjective Allergies: Coded Allergies: No Known Allergies (Unverified , 06/15/12) Subjective pain controlled no chest pain or sob pos bm Objective Last 24 Hour Vital Signs Date Time Temp Pulse Resp B/P (MAP) Pulse Ox O2 Delivery O2 Flow Rate FiO2 05/06/19 12:00 98.5 113 20 150/82 (104) 96 05/06/19 10:00 Room Air 05/06/19 09:54 Room Air 05/06/19 09:00 103 124/72 05/06/19 08:50 98.5 103 18 124/72 (89) 95 05/06/19 04:30 98.1 102 18 136/83 (100) 95 Intake and Output 05/06/19 05/07/19 18:59 06:59 Intake Total 150 ml Balance 150 ml IV Total 150 ml Laboratory Tests 05/06/19 05:25: White Blood Count 9.0, Red Blood Count 4.15L, Hemoglobin 12.7L, Hematocrit 38.0L , Mean Corpuscular Volume 91, Mean Corpuscular Hemoglobin 30.5, Mean Corpuscular Hemoglobin Concent 33.4, Red Cell Distribution Width 12.1, Platelet Count 141L, Mean Platelet Volume 8.3, Neutrophils (%) (Auto) 80.6H, Lymphocytes (%) (Auto) 9.5L, Monocytes (%) (Auto) 7.5, Eosinophils (%) (Auto) 2.1, Basophils (%) (Auto) 0.3 Height (Feet): 5 Height (Inches): 7.00 Weight (Pounds): 193 General Appearance: WD/WN, no apparent distress Neck: supple Cardiovascular: normal rate Respiratory/Chest: lungs clear Abdomen: normal bowel sounds, soft Objective le wrapped neurvascular intact Evan Calvin MD May 07, 2019 00:36
== END 2019-05-06 13:25 | disposition short-term general hospital (02) | DRG 470 ==
LOC: SDSOVERFLO 05:56 → 3E 12:26
PROC: 0SRC0J9 Replacement of Right Knee Joint with Synthetic Substitute, Cemented, Open Approach (ICD-10-PCS; principal; 2019-05-03 07:30)
DX: M17.11 Unilateral primary osteoarthritis, right knee (principal); Z85.820 Personal history of malignant melanoma of skin; I10 Essential (primary) hypertension; R33.9 Retention of urine, unspecified
CPT/HCPCS: 36415; 71045; 80053; 84132; 85025; 86850; 86900; 86901; 87081; 94003; 94150; J2250; J2405